=== PATIENT | female | born 1985 | race Two or more races ===

== ENCOUNTER 2021-10-04 10:46 | Emergency (ER) | payer OTHER ==
[~2021-10-04] VITALS: Ht 162.6 cm; Wt 65.8 kg
[2021-10-04 11:02] VITALS: BP 116/75
[2021-10-04] MEDS ORDERED: Paxlovid PO (11:10)
--- NOTE | 2021-10-04 11:19 | NUR ---
Patient discharged to home in stable condition. Written and verbal after care instructions given. Patient verbalizes understanding of instruction.
== END 2021-10-04 11:19 | disposition home or self-care (01) ==
LOC: ER 10:57
DX: U07.1 COVID-19 (principal); Z79.899 Other long term (current) drug therapy